=== PATIENT | female | born 1970 | race Two or more races ===

== ENCOUNTER 2016-11-10 10:13 | Emergency (ER) | payer BC, OTHER ==
[~2016-11-10] VITALS: Ht 172.7 cm; Wt 69.4 kg
--- NOTE | 2016-11-10 10:20 | NUR ---
PATIENT ARRIVED TO ER C/O DIZZINESS. SEEN BY DR. LYONS. VITALS STABLE. SAFTEY AND COMFORT MEASURES PROVIDED. WILL MONITOR.
--- NOTE | 2016-11-10 10:30 | NUR ---
VALIDATION LEADER AT BEDSIDE FOR BLOOD DRAW.
[2016-11-10 10:47] LABS: BASOPHILS % (AUTO) 0.6 % (0.0-2.0); EOSINOPHILS # (AUTO) 0.1 /CMM (0.0-0.7); EOSINOPHILS % (AUTO) 1.5 % (0.0-6.0); HEMATOCRIT 40 % (33-45); LYMPHOCYTES % (AUTO) 39.3 % (20.0-44.0); MEAN CORPUSCULAR HEMOGLOBIN 27 PG (26.0-33.0); MEAN CORPUSCULAR HGB CONC 33 g/dl (31.0-36.0); MEAN CORPUSCULAR VOLUME 83 fL (82-100); MONOCYTES # (AUTO) 0.4 /CMM (0.1-1.30); MONOCYTES % (AUTO) 8.2 % (2.0-12.0); NEUTROPHILS # (AUTO) 2.6 /CMM (1.8-8.9); NEUTROPHILS % (AUTO) 50.4 % (43.0-81.0); PLATELET COUNT (AUTO) 282 /CMM (150-450); RED BLOOD CELL COUNT(AUTO) 4.82 MIL/uL (4.0-5.2); WHITE BLOOD COUNT (AUTO) 5.1 K/uL (4.3-11.0)
[2016-11-10 10:53] LABS: CALCIUM, SERUM 8.9 mg/dL (8.5-10.1); CREATININE 0.7 mg/dL (0.6-1.3); POTASSIUM 3.6 mmol/L (3.5-5.1)
--- NOTE | 2016-11-10 11:05 | NUR ---
URINE SAMPLE OBTAINED, SENT.
--- NOTE | 2016-11-10 11:05 | NUR ---
Patient discharged to home in stable condition. Written and verbal after care instructions given. Patient verbalizes understanding of instruction.
[2016-11-10 11:07] VITALS: BP 136/85
== END 2016-11-10 11:08 | disposition home or self-care (01) ==
LOC: ER 10:14
DX: R42 Dizziness and giddiness (principal)
CPT/HCPCS: 36415; 80048-TC; 85025-TC; A4606; Z7610

== ENCOUNTER 2017-02-20 10:58 | Emergency (ER) | payer OTHER, BC ==
[~2017-02-20] VITALS: Ht 172.7 cm; Wt 68.0 kg
--- NOTE | 2017-02-20 11:30 | NUR ---
PATIENT PRESENTS TO ER C/O BILATERAL KNEE PAIN, AND BILATERAL HAND PAIN S/P GLF AT WORK. DENIES, LOC, NECK, OR BACK PAIN. A/OX 4. BREATHING EVEN AND UNLABORED. NO SOB. VITALS STABLE, SAFETY AND COMFORT MEASURES IN PLACE. AWAITING MD ORDERS.
[2017-02-20 12:44] VITALS: BP 126/64
--- NOTE | 2017-02-20 12:45 | NUR ---
Bilat. knees wrapped with Cristian Bandages. Patient discharged to home in stable condition. Written and verbal after care instructions given. Patient verbalizes understanding of instruction.
== END 2017-02-20 12:46 | disposition home or self-care (01) ==
LOC: ER 11:00
DX: S60.221A Contusion of right hand, initial encounter (principal); S60.222A Contusion of left hand, initial encounter; S80.02XA Contusion of left knee, initial encounter; S80.01XA Contusion of right knee, initial encounter; W18.39XA Other fall on same level, initial encounter; Y93.89 Activity, other specified; Y92.89 Other specified places as the place of occurrence of the external cause; Y99.0 Civilian activity done for income or pay
CPT/HCPCS: 73564-TC; A4606; Z7610

== ENCOUNTER 2017-02-24 10:29 | Outpatient (CLI) | payer BC, OTHER | END 2017-02-24 23:59 | disposition home or self-care (01) | LOC: WOU 10:29 | PROVIDERS: ATTEND Podiatrist Foot & Ankle Surgery | DX: M25.571 Pain in right ankle and joints of right foot (principal); R60.0 Localized edema; Z91.81 History of falling | CPT/HCPCS: 73630-TC; G0463 ==

== ENCOUNTER 2017-02-24 11:43 | Outpatient (CLI) | payer BC, OTHER | END 2017-02-24 23:59 | disposition home or self-care (01) | LOC: RAD 11:43 | PROVIDERS: ATTEND Podiatrist Foot & Ankle Surgery | DX: Z75.3 Unavailability and inaccessibility of health-care facilities (principal) ==

== ENCOUNTER 2017-07-23 06:36 | Outpatient (CLI) | payer BC ==
[2017-07-23 08:29] LABS: BASOPHILS % (AUTO) 0.6 % (0.0-2.0); EOSINOPHILS # (AUTO) 0.1 /CMM (0.0-0.7); EOSINOPHILS % (AUTO) 1.7 % (0.0-6.0); HEMATOCRIT 39 % (33-45); HEMOGLOBIN 13.4 g/dL (11.5-14.8); LYMPHOCYTES # (AUTO) 1.8 /CMM (0.8-4.8); LYMPHOCYTES % (AUTO) 42.6 % (20.0-44.0); MEAN CORPUSCULAR HEMOGLOBIN 29 PG (26.0-33.0); MEAN CORPUSCULAR HGB CONC 34 g/dl (31.0-36.0); MEAN CORPUSCULAR VOLUME 84 fL (82-100); MONOCYTES # (AUTO) 0.3 /CMM (0.1-1.30); MONOCYTES % (AUTO) 7.5 % (2.0-12.0); NEUTROPHILS % (AUTO) 47.6 % (43.0-81.0); PLATELET COUNT (AUTO) 293 /CMM (150-450); RDW COEFFICIENT OF VARIATION 14.1 (11.5-15.0); RED BLOOD CELL COUNT(AUTO) 4.67 MIL/uL (4.0-5.2); WHITE BLOOD COUNT (AUTO) 4.3 K/uL (4.3-11.0)
[2017-07-23 09:20] LABS: ALBUMIN 3.8 g/dL (3.4-5.0); BILIRUBIN,TOTAL 0.5 mg/dL (0.2-1.0); CREATININE 0.7 mg/dL (0.6-1.3); POTASSIUM 4.1 mmol/L (3.5-5.1)
[2017-07-23 09:34] LABS: THYROID STIMULATING HORMONE 1.267 uIU/mL (0.358-3.74)
[2017-07-23 10:03] LABS: APPEARANCE,URINE CLEAR (CLEAR); BILIRUBIN,URINE NEGATIVE (NEGATIVE); BLOOD, URINE NEGATIVE Ery/uL (NEGATIVE); COLOR,URINE YELLOW (YELLOW); KETONES,URINE NEGATIVE (NEGATIVE); LEUKOCYTE ESTERASE ,URINE NEGATIVE (NEGATIVE); NITRITE, URINE NEGATIVE (NEGATIVE); PROTEIN,URINE NEGATIVE (NEGATIVE); UGLUCOSE NEGATIVE (NEGATIVE); UROBILINOGEN,URINE 0.2 EU/dL (0.2)
== END 2017-07-23 23:59 | disposition home or self-care (01) ==
LOC: LAB 06:36
PROVIDERS: ATTEND Legal Medicine
DX: Z00.01 Encounter for general adult medical examination with abnormal findings (principal); R79.89 Other specified abnormal findings of blood chemistry
CPT/HCPCS: 36415; 80053-TC; 80061-TC; 81000-TC; 82306; 82728-TC; 82746; 83540-TC; 84439-TC; 84443-TC; 85025-TC

== ENCOUNTER 2017-07-28 12:00 | Outpatient (CLI) | payer BC | END 2017-07-28 23:59 | disposition home or self-care (01) | LOC: WOU 12:00 | PROVIDERS: ATTEND Podiatrist Foot & Ankle Surgery | DX: M77.51 Other enthesopathy of right foot and ankle (principal); M77.41 Metatarsalgia, right foot; S90.31XD Contusion of right foot, subsequent encounter; X58.XXXD Exposure to other specified factors, subsequent encounter; R60.0 Localized edema | CPT/HCPCS: G0463 ==

== ENCOUNTER 2017-07-29 09:27 | Outpatient (CLI) | payer BC | END 2017-07-29 23:59 | disposition home or self-care (01) | LOC: MRI 09:27 | PROVIDERS: ATTEND Podiatrist Foot & Ankle Surgery | DX: M19.071 Primary osteoarthritis, right ankle and foot (principal) | CPT/HCPCS: 73718-TC ==

== ENCOUNTER 2017-08-11 09:55 | Outpatient (CLI) | payer BC | END 2017-08-11 23:59 | disposition home or self-care (01) | LOC: WOU 09:55 | PROVIDERS: ATTEND Podiatrist Foot & Ankle Surgery | DX: M19.071 Primary osteoarthritis, right ankle and foot (principal) | CPT/HCPCS: G0463 ==

== ENCOUNTER 2017-11-04 08:25 | Outpatient (CLI) | payer BC ==
[2017-11-04 09:34] LABS: CHOLESTEROL 211 mg/dL (<200); HDL CHOLESTEROL 63 mg/dL (40-60); LDL 142 mg/dL (0-99); TRIGLYCERIDES 66 mg/dL (30-150)
== END 2017-11-04 23:59 | disposition home or self-care (01) ==
LOC: LAB 08:25
PROVIDERS: ATTEND Legal Medicine
DX: E78.5 Hyperlipidemia, unspecified (principal); E55.9 Vitamin D deficiency, unspecified
CPT/HCPCS: 36415; 80061-TC; 82306